=== PATIENT | female | born 1995 | race Caucasian/White ===

== ENCOUNTER 2021-11-22 09:19 | Emergency (ER) | payer SELFPAY ==
[~2021-11-22] VITALS: Ht 167.6 cm; Wt 70.0 kg
[2021-11-22 11:15] VITALS: BP 150/68
[2021-11-22 11:17] LABS: URINE BILIRUBIN - DIPSTICK NEGATIVE (NEGATIVE); URINE BLOOD DIPSTICK NEGATIVE (NEGATIVE); URINE COLOR YELLOW; URINE KETONE NEGATIVE (NEGATIVE); URINE LEUK ESTERASE NEGATIVE (NEGATIVE); URINE PH 6.5 (4.5-8.0); URINE PROTEIN - DIPSTICK NEGATIVE (NEG-TRACE); URINE SPECIFIC GRAVITY 1.015; URINE UROBILINOGEN - DIPSTICK 0.2 E.U./dL (0.2)
[2021-11-22 11:19] LABS: URINE GLUCOSE - DIPSTICK NEGATIVE (NEGATIVE); URINE NITRITE - DIPSTICK POSITIVE (Negative)
[2021-11-22 11:20] LABS: URINE BACTERIA MANY hpf
== END 2021-11-22 11:15 | disposition left against medical advice (07) | DRG 392 ==
LOC: ED 09:19
PROVIDERS: Emergency Medicine
DX: R10.2 Pelvic and perineal pain (principal); R82.71 Bacteriuria; Z91.19 Patient's noncompliance with other medical treatment and regimen